=== PATIENT | male | born 1930 | race Caucasian/White ===

== ENCOUNTER 2017-04-30 01:04 | Emergency (ER) | payer MEDICARE ==
[~2017-04-30] VITALS: Ht 188 cm; Wt 108.9 kg
[~2017-04-30 01:04] MED LIST: AMLO10TA2 PO; LOVA40TA2 PO; TRIA1CAP3 PO
[2017-04-30] MEDS ORDERED: IV NORMAL SALINE 1000ML BAG 1,000 ML IV SCH (01:14)
--- NOTE | 2017-04-30 01:14 | PHYS DOC ---
Past Medical History Past Medical History: High Cholesterol, Hypertension Past Surgical History: Knee Replacement, Other Additional Past Surgical Histo: hernia repair Smoking: Quit Greater Than 1 Year Alcohol Use: Occasionally Drug Use: None Social History Narrative: ; lives with Adult General Chief Complaint Chief Complaint: TRAUMA ALERT HPI HPI Patient is a 86 year old male who presents with fall down stairs. He was going down the stairs and nocturnal light on and missed a step. He went down 13 stairs , they were carpeted but hit the tile on the floor. He was knocked out. EMS arrived he declined transport. Called his son who brought him in by private vehicle. On any blood thinners. His personal physician is Dr. Antione James. Present complaint is right back pain and right side pain. He denies any neck pain presently. No abdominal pain. Some low back pain. Denies any pain to his extremities. He did cut his left toe in the fall. Denies any numbness or T-wave to his arms or legs. Denies any short of breath, But does have pain with breathing. Recent travel. No recent illness. Review of Systems Review of Systems Constitutional: Denies fever or chills Eyes: Denies change in visual acuity, redness, or eye pain HENT: Denies nasal congestion or sore throat Respiratory: Denies cough. Has pain with breathing and right rib pain. Cardiovascular: No chest pain prior to fall. No syncope GI: Denies abdominal pain, nausea, vomiting, bloody stools or diarrhea : Denies dysuria or hematuria Musculoskeletal: Back pain. Integument: Denies rash or skin lesions Neurologic: Denies headache, focal weakness or sensory changes Had POSITIVE LOC after fall (not prior) Current Medications Current Medications Current Medications Medications (Trade) Dose Ordered Sig/Boris Start Time Stop Time Status Last Admin Dose Admin Diphtheria/ Tetanus/Acell Pertussis (Boostrix) 0.5 ml ONCE ONCE 04/30/17 05:00 04/30/17 05:01 DC Fentanyl Citrate (Fentanyl 2ml Vial) 25 mcg 1X ONCE 04/30/17 04:30 04/30/17 04:31 DC Lidocaine/ Epinephrine (Xylocaine 1%-Epi 1:100,000) 20 ml 1X ONCE 04/30/17 04:30 04/30/17 04:31 DC Ondansetron HCl (Zofran) 4 mg 1X ONCE 04/30/17 04:30 04/30/17 04:31 DC Sodium Chloride 1,000 ml @ 1,000 mls/hr 1X ONCE 04/30/17 03:45 04/30/17 04:44 DC 04/30/17 02:00 1,000 MLS/HR Allergies Allergies Allergies Coded Allergies Type Severity Reaction Last Updated Verified No Known Drug Allergies 11/15/14 No Physical Exam Physical Exam Constitutional: Well developed, well nourished, no acute distress, non-toxic appearance. AMBULATED INTO THE ED HENT: Normocephalic, atraumatic, TM clear bilaterally without hemotympanum. bilateral external ears normal, oropharynx moist, no oral exudates, nose normal. Eyes: PERRLA, EOMI, conjunctiva normal, no discharge. Neck: Non tender to palpation of cervical spine. no stridor. Trachea midline. Cardiovascular:Heart rate regular rhythm, no murmur Lungs & Thorax: Bilateral breath sounds clear to auscultation. pain on palpation to the right lateral posterior ribs. No crepitus palpated. Abdomen: Bowel sounds normal, soft, no tenderness, no masses, no pulsatile masses. Skin: Warm, dry, no erythema, no rash. Back: tenderness to lower and mid back, Extremities: No tenderness, no cyanosis, no clubbing, ROM intact, no edema. Neurologic: Alert and oriented X 3, normal motor function, normal sensory function, no focal deficits noted. Psychologic: Affect normal, judgement normal, mood normal. Current Patient Data Vital Signs Vital Signs Date Time Temp Pulse Resp B/P (MAP) Pulse Ox O2 Delivery O2 Flow Rate FiO2 04/30/17 01:10 98.8 80 16 111/65 (80) 94 Room Air 98.8 Lab Values Laboratory Tests Test 04/30/17 01:15 04/30/17 01:46 White Blood Count 15.7 x10^3/uL (4.0-11.0) H Red Blood Count 4.88 x10^6/uL (4.30-5.70) Hemoglobin 14.3 g/dL (13.0-17.5) Hematocrit 44.2 % (39.0-53.0) Mean Corpuscular Volume 91 fL (79-100) Mean Corpuscular Hemoglobin 29 pg (25-35) Mean Corpuscular Hemoglobin Concent 32 g/dL (31-37) Red Cell Distribution Width 15.3 % (11.5-14.5) H Platelet Count 227 x10^3/uL (140-400) Neutrophils (%) (Auto) 64 % (31-73) Lymphocytes (%) (Auto) 29 % (24-48) Monocytes (%) (Auto) 6 % (0-9) Eosinophils (%) (Auto) 1 % (0-3) Basophils (%) (Auto) 1 % (0-3) Neutrophils # (Auto) 10.0 x10^3uL (1.8-7.7) H Lymphocytes # (Auto) 4.5 x10^3/uL (1.0-4.8) Monocytes # (Auto) 0.9 x10^3/uL (0.0-1.1) Eosinophils # (Auto) 0.2 x10^3/uL (0.0-0.7) Basophils # (Auto) 0.1 x10^3/uL (0.0-0.2) Prothrombin Time 12.5 SEC (11.7-14.0) Prothrombin Time INR 1.0 (0.8-1.1) PTT 23 SEC (24-38) L Sodium Level 143 mmol/L (136-145) Potassium Level 3.2 mmol/L (3.5-5.1) L Chloride Level 105 mmol/L (98-107) Carbon Dioxide Level 31 mmol/L (21-32) Anion Gap 7 (6-14) Blood Urea Nitrogen 32 mg/dL (8-26) H Creatinine 1.7 mg/dL (0.7-1.3) H Estimated GFR (Cockcroft-Gault) 38.6 BUN/Creatinine Ratio 19 (6-20) Glucose Level 168 mg/dL (70-99) H Calcium Level 9.8 mg/dL (8.5-10.1) Total Bilirubin 0.4 mg/dL (0.2-1.0) Aspartate Amino Transferase (AST) 39 U/L (15-37) H Alanine Aminotransferase (ALT) 35 U/L (16-63) Alkaline Phosphatase 59 U/L (46-116) Total Protein 6.9 g/dL (6.4-8.2) Albumin 3.7 g/dL (3.4-5.0) Albumin/Globulin Ratio 1.2 (1.0-1.7) Lipase 219 U/L (73-393) Ethyl Alcohol Level < 10 mg/dL (0-10) POC Troponin I 0.00 ng/ml (<0.08) Laboratory Tests 04/30/17 01:15 Laboratory Tests 04/30/17 01:15 EKG EKG EKG interpreted by myself. Time of EKG was 0120 a.m. Sinus rhythm rate of 66. Prolonged MN interval. No ST elevation. Radiology/Procedures Radiology/Procedures [facility] [address] [place] [address] IMAGING REPORT Signed PATIENT: SHARON TRINH ACCOUNT: [id number] : 1930 LOCATION: ER AGE: 86 SEX: M EXAM STATUS: REG ER ORD. PHYSICIAN: RUSSELL CHU MD REASON: FALL-PAIN TO RIGHT RIBS, CHEST ,ABDOMEN AND PELVIS PROCEDURE: CT CHEST ABDOMEN PELVIS WO CT head without contrast: Reason for examination: Fell with head and neck pain and and chest, abdomen, pelvis and back pain. Axial images were obtained through the brain. No contrast was administered. Ventricular systems are symmetric and not dilated. No midline shift is seen. There is no evidence of intracranial hemorrhage, infarct, mass or contusion. No abnormalities are seen at the orbits. The paranasal sinuses and mastoid air cells are clear. No acute abnormality seen in the skull. IMPRESSION: No acute intracranial abnormality evident. CT cervical spine without contrast: Helical images were obtained through the cervical spine from skull base through the thoracic apices with reconstruction in sagittal and coronal planes. The C1 ring is intact. The odontoid process is intact and normally centered between the lateral masses of C1. The cervical vertebral bodies are normally aligned anteriorly and posteriorly. No acute fracture or subluxation is seen. There is however severe degenerative spondylosis from C3 through T1 with severe disc space narrowing present and large hypertrophic spurs anteriorly. Prevertebral soft tissues are normal. IMPRESSION: Severe degenerative spondylosis from C3 through T1. No acute abnormality evident in the cervical spine. CT chest, abdomen and pelvis without contrast: Helical images were obtained through the chest abdomen and pelvis with no contrast administered. Reconstruction was performed in sagittal and coronal planes. No abnormality seen at the thyroid gland. The trachea and mainstem bronchi show no intraluminal lesions. No abnormality seen at the esophagus. The thoracic aorta shows no aneurysmal dilatation but there is some arteriosclerotic vascular calcification. The heart size is normal with no pericardial effusion seen. The left lung jackson show some atelectasis at the left lung base. The right lung field shows suggestion of some increased parenchymal density in the right upper lobe and at the left lung base which may reflect infiltrates. There is also however a moderate pneumothorax present. There is a small amount of pleural fluid on the right. There is subcutaneous emphysema in the right hemithorax. The clavicles and scapula appear to be intact. There are however fractures of the right first, second, third, fifth, sixth, seventh, eighth, ninth, 10th and 11th ribs laterally. There are degenerative changes in the thoracic spine but no acute fracture or subluxation is seen posterior elements appear to be intact. In the abdomen, no abnormality seen at the liver, spleen adrenal glands or pancreas. There is cholelithiasis. The abdominal aorta shows arteriosclerotic vascular calcification but no aneurysmal dilatation is evident. No abnormality seen at the appendix. The intestinal tract shows no abnormally dilated loops of bowel or thickened bowel benitez. There is diverticulosis of the sigmoid colon but no evidence of diverticulitis. No bowel obstruction is seen. The right kidney shows no mass or hydronephrosis and no renal calculi or obstructive uropathy is evident. The left kidney however shows hypodense lesions probably representing cysts at the upper and lower poles measuring 4.2 cm at the upper pole and 5.4 cm at the lower pole. No renal calculi are obstructive uropathy is evident. No abnormality seen at the bladder. Prostate gland contains calcifications but is not enlarged. No abnormalities are seen at the seminal vesicles. No acute bony abnormalities are seen in the lumbar spine or pelvis. There are however severe degenerative changes in the lumbar spine especially at the L5-S1 disc level. IMPRESSION: Multiple right rib fractures with subcutaneous emphysema and a moderate right pneumothorax. Hazy density in the right upper and lower lobes probably reflecting some atelectasis however recommend follow-up to exclude infiltrates. Small right pleural effusion. Cholelithiasis. Cysts in the upper and lower pole of the left kidney measuring 4.2 and 5.4 cm respectively. Diverticulosis in the sigmoid colon. Degenerative changes in the spine. CT thoracic spine without contrast: Helical images were obtained through the thoracic spine with no contrast administered. Reconstruction was performed in sagittal and coronal planes. The thoracic vertebral bodies appear to be normally aligned anteriorly and posteriorly with no acute fracture or subluxation. There are however hypertrophic changes off the anterior endplates from T9 to T12. There is some vacuum phenomenon at the T11-12 level. The intervertebral disc spaces however are fairly well-maintained. Posterior elements however show fractures of the right transverse process at the fifth, seventh and eighth vertebral bodies. There are also fractures posterior medially at the right second, third, fourth, fifth and sixth ribs. The pedicles, lamina and spinous processes appear to be intact throughout the thoracic spine. IMPRESSION: Multiple fractures involving the right transverse processes at the fifth, seventh and eighth vertebral bodies. Fractures of the posterior medial aspect of the ribs at the second, third, fourth, fifth and sixth ribs. Degenerative spondylosis with hypertrophic spurring from T9 to T12. CT lumbar spine without contrast: Helical images were obtained through the lumbar spine with no contrast administered. Reconstruction was performed in sagittal and coronal planes. The vertebral bodies of the lumbar spine are normally aligned anteriorly and posteriorly. No acute fracture or subluxation is evident. There is however severe degenerative spondylosis with moderate disc space narrowing at the L1-2 and L2-3 disc levels and severe disc space narrowing at the L5-S1 disc level. Vacuum discs are present at all levels. No abnormality seen at the sacrum. Sacroiliac joints are symmetric. IMPRESSION: Severe degenerative spondylosis especially at the L5-S1 disc level. No acute fracture or subluxation. Exposure: One or more of the following individualized dose reduction techniques were utilized for this examination: 1. Automated exposure control 2. Adjustment of the mA and/or kV according to patient size 3. Use of iterative reconstruction technique. Electronically signed by: Tessa Augustin MD (04/30/2017 3:36 AM) [facility] DICTATED and SIGNED BY: TESSA AUGUSTIN MD DATE: 04/30/17 0253 CC: RUSSELL CHU MD; ANTIONE JAMES Jr, MD ~ Impressions: CXR POST CHEST TUBE: By interpretation chest tube is in good position on the right. Significant amount subcutaneous emphysema noted. Lung is however reexpanded. No dystonic final shift Course & Med Decision Making Course & Med Decision Making Pertinent Labs and Imaging studies reviewed. (See chart for details) 0104 AM: Evaluated patient upon arrival to room. Concerned about intra thoracic and intra abdominal trauma. IV established. Lab sent. 0200 AM: GFR is <40; unable to give contrast. CT ordered without. Patient is stable. 0315 am: awaiting CT results; patient resting comfortably. 0350 am: CT results back and noted. Requires admission; Dr Love consulted but patient requires higher level trauma care. BP 108/55, P 71, sat 94% on 2 L. reviewed findings w patient and son. Son requests [facility] for trauma transport. 0405 am: Dr Ng called (Trauma surgeon [facility]) and will accept for trauma ICU. CT placed prior to transfer. 0530 AM: Chest x-ray shows reexpansion of the lung. Patient is stable for transport. EMS at bedside. 166/71, p 90, SAT 92% Dragon Disclaimer Dragon Disclaimer This electronic medical record was generated, in whole or in part, using a voice recognition dictation system. Departure Departure Impression: Primary Impression: Multiple rib fractures involving first rib Additional Impression: Closed fracture of transverse process of thoracic vertebra Disposition: 05 TRANSFER OTHER Condition: STABLE Referrals: ANTIONE JAMES Jr, MD (PCP) Chest Tube Chest Tube : Chest Tube Location: mid axillary line Size of Setswana Tube (cm): 24 Chest Tube Procedure: betadine prep, sterile drapes applied, sterile dressing applied Anesthesia: 1% Lidocaine w/ Epi Volume Anesthetic (ccs): 15 [place] of Air Anderson: Yes Number of Attempts: 1 Time of Successful Intubation: 05:00 Tube Sutured to Skin: Yes Post Procedure CXR?: Yes Progress Consent was obtained. Patient tolerated the procedure well. Chest tube was well secured and sutured with 3-0 silk. Postprocedure chest x-ray shows chest tube in place with reexpansion along. Critical Care Note Total Time (mins): 40 Comments Patient required frequent monitoring. Interpretation of laboratory data and CT scans. Discussion with consultants and trauma center transfer. Problems: (1) Chest pain (2) Multiple rib fractures involving first rib Critical Care Time Critical care time was 40 minutes exclusive of procedures. Problem Qualifiers (1) Chest pain: Chest pain type: intercostal pain Qualified Codes: R07.82 - Intercostal pain Additional Impression: Closed fracture of transverse process of thoracic vertebra Encounter type: initial encounter Qualified Codes: S22.009A - Unspecified fracture of unspecified thoracic vertebra, initial encounter for closed fracture RUSSELL CHU MD Apr 30, 2017 01:14
[2017-04-30 01:30] LABS: BASO # 0.1 x10^3/uL (0.0-0.2); BASO % 1 % (0-3); EOS % 1 % (0-3); HEMATOCRIT 44.2 % (39.0-53.0); HEMOGLOBIN 14.3 g/dL (13.0-17.5); LYMPH # 4.5 x10^3/uL (1.0-4.8); LYMPH % 29 % (24-48); MEAN CORPUSCULAR HEMOGLOBIN 29 pg (25-35); MEAN CORPUSCULAR HGB CONC 32 g/dL (31-37); MEAN CORPUSCULAR VOLUME 91 fL (79-100); MONO % 6 % (0-9); NEUT % 64 % (31-73); PLATELET COUNT 227 x10^3/uL (140-400); RED BLOOD COUNT 4.88 x10^6/uL (4.30-5.70); RED CELL DISTRIBUTION WIDTH 15.3 % (11.5-14.5); WHITE BLOOD COUNT 15.7 x10^3/uL (4.0-11.0)
[2017-04-30] MEDS ORDERED: ONDANSETRON PF 4 MG/2 ML VIAL. IV ONE ×2 (01:30→04:30)
[2017-04-30 01:44] LABS: CALCIUM 9.8 mg/dL (8.5-10.1); CREATININE 1.7 mg/dL (0.7-1.3); GFR 38.6; POTASSIUM 3.2 mmol/L (3.5-5.1)
[2017-04-30] MEDS: fentaNYL PF VIAL 100 MCG/2 ML VIAL IV PRN ×3 (01:44→05:00)
[2017-04-30 01:49] LABS: PROTHROMBIN TIME PATIENT 12.5 SEC (11.7-14.0)
[2017-04-30 01:50] LABS: ALBUMIN 3.7 g/dL (3.4-5.0); ALBUMIN/GLOBULIN RATIO 1.2 (1.0-1.7); TOTAL BILIRUBIN 0.4 mg/dL (0.2-1.0); TOTAL PROTEIN 6.9 g/dL (6.4-8.2)
--- NOTE | 2017-04-30 03:40 | RAD ---
CT head without contrast: Reason for examination: Fell with head and neck pain and and chest, abdomen, pelvis and back pain. Axial images were obtained through the brain. No contrast was administered. Ventricular systems are symmetric and not dilated. No midline shift is seen. There is no evidence of intracranial hemorrhage, infarct, mass or contusion. No abnormalities are seen at the orbits. The paranasal sinuses and mastoid air cells are clear. No acute abnormality seen in the skull. IMPRESSION: No acute intracranial abnormality evident. CT cervical spine without contrast: Helical images were obtained through the cervical spine from skull base through the thoracic apices with reconstruction in sagittal and coronal planes. The C1 ring is intact. The odontoid process is intact and normally centered between the lateral masses of C1. The cervical vertebral bodies are normally aligned anteriorly and posteriorly. No acute fracture or subluxation is seen. There is however severe degenerative spondylosis from C3 through T1 with severe disc space narrowing present and large hypertrophic spurs anteriorly. Prevertebral soft tissues are normal. IMPRESSION: Severe degenerative spondylosis from C3 through T1. No acute abnormality evident in the cervical spine. CT chest, abdomen and pelvis without contrast: Helical images were obtained through the chest abdomen and pelvis with no contrast administered. Reconstruction was performed in sagittal and coronal planes. No abnormality seen at the thyroid gland. The trachea and mainstem bronchi show no intraluminal lesions. No abnormality seen at the esophagus. The thoracic aorta shows no aneurysmal dilatation but there is some arteriosclerotic vascular calcification. The heart size is normal with no pericardial effusion seen. The left lung jackson show some atelectasis at the left lung base. The right lung field shows suggestion of some increased parenchymal density in the right upper lobe and at the left lung base which may reflect infiltrates. There is also however a moderate pneumothorax present. There is a small amount of pleural fluid on the right. There is subcutaneous emphysema in the right hemithorax. The clavicles and scapula appear to be intact. There are however fractures of the right first, second, third, fifth, sixth, seventh, eighth, ninth, 10th and 11th ribs laterally. There are degenerative changes in the thoracic spine but no acute fracture or subluxation is seen posterior elements appear to be intact. In the abdomen, no abnormality seen at the liver, spleen adrenal glands or pancreas. There is cholelithiasis. The abdominal aorta shows arteriosclerotic vascular calcification but no aneurysmal dilatation is evident. No abnormality seen at the appendix. The intestinal tract shows no abnormally dilated loops of bowel or thickened bowel benitez. There is diverticulosis of the sigmoid colon but no evidence of diverticulitis. No bowel obstruction is seen. The right kidney shows no mass or hydronephrosis and no renal calculi or obstructive uropathy is evident. The left kidney however shows hypodense lesions probably representing cysts at the upper and lower poles measuring 4.2 cm at the upper pole and 5.4 cm at the lower pole. No renal calculi are obstructive uropathy is evident. No abnormality seen at the bladder. Prostate gland contains calcifications but is not enlarged. No abnormalities are seen at the seminal vesicles. No acute bony abnormalities are seen in the lumbar spine or pelvis. There are however severe degenerative changes in the lumbar spine especially at the L5-S1 disc level. IMPRESSION: Multiple right rib fractures with subcutaneous emphysema and a moderate right pneumothorax. Hazy density in the right upper and lower lobes probably reflecting some atelectasis however recommend follow-up to exclude infiltrates. Small right pleural effusion. Cholelithiasis. Cysts in the upper and lower pole of the left kidney measuring 4.2 and 5.4 cm respectively. Diverticulosis in the sigmoid colon. Degenerative changes in the spine. CT thoracic spine without contrast: Helical images were obtained through the thoracic spine with no contrast administered. Reconstruction was performed in sagittal and coronal planes. The thoracic vertebral bodies appear to be normally aligned anteriorly and posteriorly with no acute fracture or subluxation. There are however hypertrophic changes off the anterior endplates from T9 to T12. There is some vacuum phenomenon at the T11-12 level. The intervertebral disc spaces however are fairly well-maintained. Posterior elements however show fractures of the right transverse process at the fifth, seventh and eighth vertebral bodies. There are also fractures posterior medially at the right second, third, fourth, fifth and sixth ribs. The pedicles, lamina and spinous processes appear to be intact throughout the thoracic spine. IMPRESSION: Multiple fractures involving the right transverse processes at the fifth, seventh and eighth vertebral bodies. Fractures of the posterior medial aspect of the ribs at the second, third, fourth, fifth and sixth ribs. Degenerative spondylosis with hypertrophic spurring from T9 to T12. CT lumbar spine without contrast: Helical images were obtained through the lumbar spine with no contrast administered. Reconstruction was performed in sagittal and coronal planes. The vertebral bodies of the lumbar spine are normally aligned anteriorly and posteriorly. No acute fracture or subluxation is evident. There is however severe degenerative spondylosis with moderate disc space narrowing at the L1-2 and L2-3 disc levels and severe disc space narrowing at the L5-S1 disc level. Vacuum discs are present at all levels. No abnormality seen at the sacrum. Sacroiliac joints are symmetric. IMPRESSION: Severe degenerative spondylosis especially at the L5-S1 disc level. No acute fracture or subluxation. Exposure: One or more of the following individualized dose reduction techniques were utilized for this examination: 1. Automated exposure control 2. Adjustment of the mA and/or kV according to patient size 3. Use of iterative reconstruction technique. Electronically signed by: Dennise Romeo MD (04/30/2017 3:36 AM) [facility]
--- NOTE | 2017-04-30 03:40 | RAD ---
Dictated with the other studies. Electronically signed by: Dennise Romeo MD (04/30/2017 3:36 AM) [facility]
[2017-04-30] MEDS ORDERED: IV NORMAL SALINE 1000ML BAG 1,000 ML IV ONE (03:45)
[2017-04-30] MEDS ORDERED: LIDOCAINE 1%/EPI 1:100,000 20 ML VIAL. INJ ONE (04:30)
[2017-04-30] MEDS ORDERED: fentaNYL PF VIAL 100 MCG/2 ML VIAL IV ONE (04:30)
[2017-04-30] MEDS ORDERED: DIPHTH,PERTUSS(ACELL),TET TOX 0.5 ML DISP.SYRIN. VAX IM ONE (05:00)
[2017-04-30 05:30] VITALS: BP 166/71
[2017-04-30] MEDS ORDERED: HYDROmorphone 2 MG/ML VIAL IM ONE (06:00)
[2017-04-30] MEDS ORDERED: HYDROmorphone 2 MG/ML VIAL IV ONE ×2 (06:00→06:30)
--- NOTE | 2017-04-30 08:19 | RAD ---
Indication post chest tube placement. A single view of the chest was obtained at 05 25. Note is made of a CT examination of the chest approximately 3 hours earlier. Note is made of a previous plain film examination to 725. The heart and pulmonary vessels are unremarkable. The left lung is clear. There is extensive subcutaneous emphysema along the right chest wall. There has been interval been interval placement, relative to the CT examination, of a chest tube on the right. There is a small right apical pneumothorax. A definite unexpected finding is not seen. There are several right rib fractures but these are best depicted on CT. IMPRESSION: Persistent significant subcutaneous emphysema along the right chest wall. Right chest tube. Small right apical pneumothorax
--- NOTE | 2017-04-30 13:21 | EKG ---
[facility] [address] [place] [address] Test Date: 2017-04-30 Test Time: 01:20:32 Pat Name: SHARON TRINH Department: Room: Gender: M [employer] Teacher: : 1930 Requested By: RUSSELL CHU Order Number: [id number] Reading MD: Measurements Intervals [place] Rate: 66 P: -90 CT: 282 QRS: 8 QRSD: 86 T: 16 QT: 384 QTc: 404 Interpretive Statements SINUS RHYTHM PROLONGED CT INTERVAL ABNORMAL ECG RI6.01 No previous ECG available for comparison
== END 2017-04-30 05:45 | disposition short-term general hospital (02) ==
LOC: ER 01:04
DX: S22.41XA Multiple fractures of ribs, right side, initial encounter for closed fracture (principal); S22.059A Unspecified fracture of T5-T6 vertebra, initial encounter for closed fracture; S22.069A Unspecified fracture of T7-T8 vertebra, initial encounter for closed fracture; E78.00 Pure hypercholesterolemia, unspecified; I10 Essential (primary) hypertension; Z87.891 Personal history of nicotine dependence; Z96.659 Presence of unspecified artificial knee joint; W10.8XXA Fall (on) (from) other stairs and steps, initial encounter; Y93.89 Activity, other specified; Y92.89 Other specified places as the place of occurrence of the external cause; Y99.8 Other external cause status
CPT/HCPCS: 32551; 36415; 70450; 71010; 71250; 72125; 74176; 80053; 83690; 84484; 85027; 85610; 85730; 86850; 86900; 86901; 90471; 90715; 93005; 96361; 96374; 96375; 96376; 99291; G0480; J2405; J3010; J3490; J7030